=== PATIENT | female | born 1990 ===

== ENCOUNTER 2019-10-12 14:39 | Outpatient (REF) | payer OTHER, SELFPAY ==
[2019-10-16 01:59] LABS: SARS-CoV-2 RNA Undetected (Undetected)
== END 2019-10-12 14:59 ==
LOC: NCHCN 14:39
PROVIDERS: PCP Nurse Practitioner Family; Visit Provider Nurse Practitioner Family
DX: Z11.59 Encounter for screening for other viral diseases (principal)
CPT/HCPCS: U0003

== ENCOUNTER 2019-12-17 12:55 | Outpatient (REF) | payer OTHER, SELFPAY ==
--- NOTE | 2019-12-17 11:15 | PAPFT_PTH ---
PATIENT: AAKASH SOLORZANO LOC: [facility] U#:[id number] AGE/SX: 29/F ROOM: RE12/17/[address]: Penelope Reese : 1990 BED: DIS: 12/17/2019 SPEC #: [id number] RECD: 12/18/19 12:47 STATUS: JOMAR REKye #: [id number] BRYAN: 12/17/19 11:[address]: Penelope Reese DEPT: [facility] Cytology RECD BY: Radha Lee ENTERED: 12/18/19 12:48 SP TYPE: PAPFT OTHR DR: Devorah Barber Tissues: 1 - CX/ENDOCX FOR PAP SMEARS Procedures: PAP THIN PREP/[facility] Screening Comments: [id number] ([facility]) (CHLAMYDIA/GC)
[2019-12-21 09:47] LABS: Chlamydia Result Negative (Negative); GC Result Negative (Negative)
== END 2019-12-17 13:15 ==
LOC: NCHCN 12:55
PROVIDERS: PCP Nurse Practitioner Family; Visit Provider Nurse Practitioner Family
DX: Z12.4 Encounter for screening for malignant neoplasm of cervix (principal); Z11.3 Encounter for screening for infections with a predominantly sexual mode of transmission
CPT/HCPCS: 87491; 87591; 88142